=== PATIENT | male | born 1960 | race Caucasian/White ===

== ENCOUNTER → 2017-01-14 | Outpatient (CLI) | payer OTHER | LOC: BMCIMAGING 15:29 | PROVIDERS: ATTEND Internal Medicine Rheumatology | DX: M25.551 Pain in right hip (principal) ==

== ENCOUNTER → 2017-02-23 | Outpatient (CLI) | payer OTHER | LOC: FIMAGING 15:59 | PROVIDERS: ATTEND Orthopaedic Surgery | DX: M16.11 Unilateral primary osteoarthritis, right hip (principal); M25.851 Other specified joint disorders, right hip; M51.36 Other intervertebral disc degeneration, lumbar region; M76.891 Other specified enthesopathies of right lower limb, excluding foot ==

== ENCOUNTER → 2017-03-07 | Outpatient (CLI) | payer OTHER ==
[~2017-03-07] MED LIST: DEPO METHYLPREDNISOLONE 40 MG/ML SDV ONE; IOPAMIDOL (ISOVUE 370) 100 ML BTL IV ONE; LIDOCAINE 1% 30 ML SDV ONE; NA BICARBONATE 50 MEQ/50 ML VIAL ONE; ROPIVACAINE HCL 150 MG/30 ML INJ ONE
== END ==
LOC: FIMAGING 12:25
PROVIDERS: ATTEND Orthopaedic Surgery
DX: M25.551 Pain in right hip (principal)
CPT/HCPCS: J1030; J2795; Q9967

== ENCOUNTER 2017-04-19 18:57 | Observation (INO) | payer OTHER ==
[2017-04-19 20:00] LABS: % IMMATURE GRANULYOCYTES 0.5 % (0.0-1.1); ABSOLUTE IMMATURE GRANULOCYTES 0.03 10^3/uL (0.00-0.10); ADD DIFF? NO; ADD MORPH? YES; ADD SCAN? NO; ATYPICAL LYMPHOCYTE FLAG 10 (0-99); FRAGMENT RBC FLAG 0 (0-99); HEMATOCRIT 19.7 % (40.0-51.0); LEFT SHIFT FLG 0 (0-99); LIPEMIA HEMOLYSIS FLAG 90 (0-99); MEAN CELL HEMOGLOBIN 37.3 pg (27.9-34.1); MEAN CELL VOLUME 106.5 fL (81.5-99.8); MEAN PLATELET VOLUME 10.7 fL (8.7-11.7); PLATELET CLUMPS FLAG 0 (0-99); PLATELET COUNT 245 10^3/uL (150-400); RED BLOOD CELL COUNT 1.85 10^6/uL (4.40-6.38)
[2017-04-19 20:02] LABS: HEMOGLOBIN 6.9 g/dL (13.7-17.5); RED CELL DISTRIBUTION WIDTH 23.2 % (11.5-15.2)
--- NOTE | 2017-04-19 20:19 | EDPHY ---
HPI/HX/ROS/PE/MDM Narrative: CHIEF COMPLAINT: Low Hgb and Hct. HISTORY OF PRESENT ILLNESS: The patient is a 56-year-old male sent here by his PCP for abnormal low Hgb and Hct. The patient went to see his PCP for low energy , chest pain, and shortness of breath that has been ongoing for the past month and a half. Patient has a past history of diabetes. He also has chronic back pain for which he has you been using Tylenol and ibuprofen. According to the patient's , he has been taking large doses of ibuprofen. He denies any abdominal upset, gastritis, reflux symptoms, vomiting, or changes in his stool. He denies bloody stool, hematuria, or hematemesis. No fever, chills, headache , or lightheadedness. REVIEW OF SYSTEMS: Aside from elements discussed in the HPI, a comprehensive 10-point review of systems was reviewed and is negative. PAST MEDICAL HISTORY: Hypertension, Diabetes, Diverticulitis SOCIAL HISTORY: . VITAL SIGNS: Reviewed by me GENERAL: Obese, Pale appearing. HEENT: Atraumatic. Eyes: Pale conjunctive. Mouth: pale mucous membranes. No erythema or lesions. Neck: supple with no adenopathy. LUNGS: Clear to auscultation bilaterally, no wheezes, rhonchi or rales. CARDIAC: Regular rate and rhythm, no rubs, murmurs or gallops. ABDOMEN: Soft, obese abdomen, bowel sounds normal. RECTAL: Small amount of brown stool. BACK: No CVA tenderness. EXTREMITIES: No trauma. No edema. Range of motion is normal throughout. NEURO: Alert and oriented, grossly nonfocal. SKIN: Warm and dry, no rash. Pale appearing. PSYCHIATRIC: Normal mentation, no agitation. Portions of this note were transcribed by a vice president medical affairs. I personally performed a history, physical exam, medical decision making, and confirmed accuracy of information the transcribed note. ED Course: Patient presents with severe anemia. Lab work shows Hgb 6.9, Hct 19. Patent appears very pale. He is borderline tachy. Hemoccult sent. Patient's occult feces is negative for blood. Unclear cause of the patient's low H&H however his CMP is noted to be significantly elevated. The patient will be admitted to the hospitalist service. EKG is nonischemic. Troponin is negative. Course was discussed with Dr. Nunes. MDM: Differential diagnoses for the patient's symptom complex was considered including but not limited to acute blood loss anemia, malignancy, dietary insufficiencies, kidney disease, drug or alcohol use. - Data Points Laboratory Results: Laboratory Results 04/19/17 19:40 04/19/17 19:40 04/19/17 04/19/17 04/19/17 19:40 19:40 19:40 WBC 6.26 10^3/uL 10^3/uL (3.80-9.50) RBC 1.85 10^6/uL L 10^6/uL (4.40-6.38) Hgb 6.9 g/dL L g/dL (13.7-17.5) Hct 19.7 % L % (40.0-51.0) MCV 106.5 fL H fL (81.5-99.8) MCH 37.3 pg H pg (27.9-34.1) MCHC 35.0 g/dL g/dL (32.4-36.7) RDW 23.2 % H % (11.5-15.2) Plt Count 245 10^3/uL 10^3/uL (150-400) MPV 10.7 fL fL (8.7-11.7) Neut % (Auto) 48.3 % % (39.3-74.2) Lymph % (Auto) 40.3 % % (15.0-45.0) [place] % (Auto) 8.6 % % (4.5-13.0) Eos % (Auto) 2.1 % % (0.6-7.6) Baso % (Auto) 0.2 % L % (0.3-1.7) Nucleat RBC Rel Count 0.0 % % (0.0-0.2) Absolute Neuts (auto) 3.03 10^3/uL 10^3/uL (1.70-6.50) Absolute Lymphs (auto) 2.52 10^3/uL 10^3/uL (1.00-3.00) Absolute Monos (auto) 0.54 10^3/uL 10^3/uL (0.30-0.80) Absolute Eos (auto) 0.13 10^3/uL 10^3/uL (0.03-0.40) Absolute Basos (auto) 0.01 10^3/uL L 10^3/uL (0.02-0.10) Absolute Nucleated RBC 0.00 10^3/uL 10^3/uL (0-0.01) Immature Gran % 0.5 % % (0.0-1.1) Immature Gran # 0.03 10^3/uL 10^3/uL (0.00-0.10) Platelet Estimate ADEQUATE (ADEQ) Polychromasia 1+ H Microcytic Cells 1+ H Tear Drop Cells 1+ H Oval Macrocytes 2+ H Smear Review By Pending Sodium 137 mEq/L mEq/L (134-144) Potassium 4.2 mEq/L mEq/L (3.5-5.2) Chloride 102 mEq/L mEq/L (97-110) Carbon Dioxide 21 mEq/l L mEq/l (22-31) Anion Gap 14 mEq/L mEq/L (8-16) BUN 11 mg/dL mg/dL (7-23) Creatinine 1.0 mg/dL mg/dL (0.7-1.3) Estimated GFR > 60 Glucose 118 mg/dL H D mg/dL (70-100) Calcium 10.0 mg/dL mg/dL (8.5-10.4) Total Bilirubin Pending Conjugated Bilirubin Pending Unconjugated Bilirubin Pending AST Pending ALT Pending Alkaline Phosphatase Pending Troponin I Pending Total Protein Pending Albumin Pending Acetaminophen Pending Patient ABO/Rh O POSITIVE Antibody Screen NEGATIVE Crossmatch IS Only See Detail General Time Seen by Provider: 04/19/17 19:57 Initial Vital Signs: Initial Vital Signs Temperature (C) 36.8 C 04/19/17 19:02 Heart Rate 108 H 04/19/17 19:02 Respiratory Rate 16 04/19/17 19:02 Blood Pressure 147/74 H 04/19/17 19:02 O2 Sat (%) 94 04/19/17 19:02 O2 Delivery Mode Room Air Allergies/Adverse Reactions: codeine [Codeine] Allergy (Verified 02/14/14 08:28) Itching fenofibrate nanocrystallized [From Tricor] Allergy (Verified 02/14/14 10:20) fenofibrate,micronized [From Tricor] Allergy (Verified 02/14/14 10:20) morphine Allergy (Verified 02/14/14 10:20) oxycodone [Oxycodone] Allergy (Verified 02/14/14 10:20) oxycodone HCl [From OxyContin] Allergy (Verified 02/14/14 10:20) Penicillins Allergy (Verified 02/14/14 08:28) Rash tramadol Allergy (Verified 02/14/14 10:20) TAPES Allergy (Uncoded 02/01/13 12:43) Home Medications: Medication Instructions Recorded ALPRAZolam [Alprazolam] 0.5 mg PO HS PRN 04/19/17 Acetaminophen [Tylenol ES 500 mg 500 mg PO Q6 PRN 04/19/17 (*)] Atorvastatin Calcium [Lipitor 40 40 mg PO HS 04/19/17 mg (*)] Gemfibrozil [Lopid 600 MG (*)] 600 mg PO BIDAC 04/19/17 Ibuprofen [Motrin (*)] 200 mg PO QID PRN 04/19/17 Metformin HCl [Metformin 1000 mg] 1,000 mg PO BID 04/19/17 Methylphenidate HCl 20 mg PO DAILY 04/19/17 [Methylphenidate HCl ER] OLANZapine [ZyPREXA 2.5 mg (*)] 2.5 mg PO HS 04/19/17 Folic Acid [Folic Acid 1 MG (*)] 1 mg PO DAILY #30 tab 04/20/17 Departure - Departure Disposition: [facility] Clinical Impression: Anemia Qualifiers: Anemia type: unspecified type Qualified Code(s): D64.9 - Anemia, unspecified Condition: Fair Report Scribed for: Madelin Ly Report Scribed by: Lou Payne Date of Report: 04/19/17 Time of Report: 20:14
[2017-04-19 20:22] LABS: ANION GAP 14 mEq/L (8-16); CARBON DIOXIDE 21 mEq/l (22-31); CHLORIDE 102 mEq/L (97-110); GLOMERULAR FILTRATION RATE > 60; GLUCOSE 118 mg/dL (70-100); POTASSIUM 4.2 mEq/L (3.5-5.2); SODIUM 137 mEq/L (134-144)
--- NOTE | 2017-04-19 20:34 | CPEKG ---
Heart Rate: 89 RR Interval: 674 P-R Interval: 188 QRSD Interval: 92 QT Interval: 348 QTC Interval: 424 P [place]: 16 QRS [place]: -1 T Wave [place]: 42 EKG Severity - NORMAL ECG - EKG Impression: SINUS RHYTHM Electronically Signed By: Madelin Ly 19-Apr-2017 21:21:51
[2017-04-19] MEDS ORDERED: NS 1,000 ML IV ONE (20:36)
[2017-04-19 21:02] LABS: ALANINE AMINOTRANSFERASE 46 IU/L (21-72); ALBUMIN 4.6 g/dL (3.5-5.0); ALKALINE PHOSPHATASE 84 IU/L (38-126); ASPARTATE AMINOTRANSFERASE 44 IU/L (17-59); BILIRUBIN,TOTAL 0.6 mg/dL (0.1-1.4); BILIRUBIN-CONJUGATED 0.5 mg/dL (0.0-0.5); BILIRUBIN-UNCONJUGATED 0.1 mg/dL (0.0-1.1); TOTAL PROTEIN 7.1 g/dL (6.3-8.2)
[2017-04-19 21:03] LABS: MACROCYTES 2+; MICROCYTES 1+; PLATELET ESTIMATE ADEQUATE (ADEQ); POLYCHROMASIA 1+
[2017-04-19 21:13] LABS: TROPONIN I < 0.012 ng/mL (0-0.034)
[2017-04-19] MEDS ORDERED: ACETAMINOPHEN 500 MG TAB PO PRN (23:10)
[2017-04-19] MEDS ORDERED: ALPRAZolam 0.5 MG TAB PO PRN (23:10)
[2017-04-19] MEDS ORDERED: ONDANSETRON 4 MG/2 ML VIAL IVP PRN (23:11)
[2017-04-19] MEDS ORDERED: NS 1,000 ML IV SCH (23:15)
--- NOTE | 2017-04-20 02:48 | GHP ---
[f rep st] HISTORY AND PHYSICAL DATE OF ADMISSION: 04/19/2017 CHIEF COMPLAINT: Chest pain, shortness of breath. HISTORY: The patient is a 56-year-old male, sent to the emergency room by his primary care doctor taylor johnson he has been found to have a significant anemia. He presented to Primary Care complaining of low e nergy, chest pain and shortness of breath for the last 2 months. He gets very dyspneic with only mi nimal exertion, just a small flight of stairs or mowing the lawn completely winds him. He has had b lurry vision, and his legs are weak and wobbly. He has a chest pain across his anterior chest and r adiating to his back. He describes this as a heaviness. He has noticed it while mowing his lawn an d other light activities. It gets better after rest. With exertion, these symptoms get so bad, he almost passes out. He has recently lost 16 pounds intentionally. He has been following a vegetarian and protein diet o mic the last 3 months leading to this weight loss. He has a complex surgical GI history, so he has had extensive colonoscopies in the past. His last 1 was 5 years ago. Due to his previous surgical anastomosis which are atypical, colonoscopies are very difficult. He reports 1 unit of packed red b lood cells in the emergency room being administered. Now, he feels better. PAST MEDICAL HISTORY: 1. Hypertension. 2. Hyperlipidemia. 3. Diabetes type 2. 4. Diverticulitis, status post 5 major surgeries including extensive bowel resection. He was told in [place], he has very little bowel left in order for them to do the reattachment. MEDICATIONS: Please see computer record for full detailed list. ALLERGIES: To codeine, fenofibrate, morphine, oxycodone, penicillin, tramadol and tape. SOCIAL HISTORY: Quit smoking 30 years ago. Occasional alcohol. He lives with his . 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 REVIEW OF SYSTEMS: Complete review of systems obtained. Review of systems is negative regarding co nstitutional, HEENT, GI, pulmonary, vascular, , hematology, skin, muscular, endocrine, psych. For positives, see in HPI. FAMILY HISTORY: Reviewed and noncontributory to the main complaint. PHYSICAL EXAMINATION: GENERAL: Well-developed, well-nourished male, in no acute distress. VITAL S IGNS: Temperature is 37.1, pulse 108, blood pressure 143/85, saturating 93% on room air. EYES: No rmal conjunctivae. Pupils reactive to light. ENT: Normal ears, nose. Hearing intact. Normal lip s and teeth. Oropharynx moist. NECK: Trachea midline. No thyromegaly. CHEST: Normal respirator y effort. Lungs are clear to auscultation bilaterally. CARDIOVASCULAR: Regular rhythm. No murmur . No lower extremity edema. ABDOMEN: Soft, nontender. No hepatosplenomegaly. SKIN: Warm, dry, intact. No rash. MUSCULOSKELETAL: No cyanosis or clubbing. Strength 5/5, upper and lower extremi ties. NEURO: Cranial nerves intact. Normal sensation to light touch. PSYCH: Alert and oriented x3. Normal affect. Normal judgment and insight. Normal memory. LAB: White count 6.26, hematocrit 19.7, hemoglobin 6.9, MCV 106, platelets 245. Sodium 137, potass ium 4.2, chloride 102, bicarb 21, BUN 11, creatinine 1.0, glucose 118. LFTs are negative. Troponin s negative. Heme-negative from below. Tylenol level is negative. TSH is 5.2, LDL is only 9. EKG viewed by me, my personal interpretation is normal sinus rhythm. No ST or T-wave changes. MEDICAL RECORDS REVIEW: I reviewed his old medical records including outpatient laboratory studies which do show that this anemia has been developing over the last few weeks. They have never checked a B12. LDL is only 9. TSH 5.2. ASSESSMENT/PLAN: 1. Macrocytic anemia with an MCV of 106. He is heme-negative from below and up-to-date on colonosc opies, making colon cancer less likely. We will check a B12 and folic acid level. I wonder whether these extensive bowel resections he has had in the past have led to some type of malabsorption stat e. He is also following a strict diet to lose weight, which may be contributing. If initial evalua tion is unremarkable, could consider inpatient hematology consultation. The patient reports getting a blood transfusion in the emergency room, although I am unable to confirm this by chart review. W e will recheck CBC in the morning. 2. Chest pain. This is clearly worsened by his anemia, although has a great history for a stable a ngina. He may have some underlying coronary artery disease as he does have risk factors with anemia exacerbating the symptoms. I would consider stress testing when his anemia is improved. 3. Hyperlipidemia. His LDL is only 9. We will hold his statin drug. 4. Diabetes type 2. Continue metformin. CODE STATUS: Full. ADMISSION STATUS: Will admit to observation as repeat testing in the morning will help determine le ngth of stay needed. DVT PROPHYLAXIS: He is low risk. We will hold off on pharmacologic prophylaxis at this time. /[id number]/MODL
[2017-04-20 05:51] LABS: % IMMATURE GRANULYOCYTES 0.5 % (0.0-1.1); ABSOLUTE IMMATURE GRANULOCYTES 0.02 10^3/uL (0.00-0.10); ADD DIFF? NO; ADD MORPH? YES; ADD SCAN? NO; ATYPICAL LYMPHOCYTE FLAG 0 (0-99); FRAGMENT RBC FLAG 0 (0-99); HEMATOCRIT 22.5 % (40.0-51.0); HEMOGLOBIN 7.5 g/dL (13.7-17.5); LEFT SHIFT FLG 0 (0-99); LIPEMIA HEMOLYSIS FLAG 80 (0-99); MEAN CELL HEMOGLOBIN 34.7 pg (27.9-34.1); MEAN CELL HEMOGLOBIN CONCENTR. 33.3 g/dL (32.4-36.7); MEAN CELL VOLUME 104.2 fL (81.5-99.8); MEAN PLATELET VOLUME 11.4 fL (8.7-11.7); PLATELET CLUMPS FLAG 0 (0-99); PLATELET COUNT 231 10^3/uL (150-400); RED BLOOD CELL COUNT 2.16 10^6/uL (4.40-6.38)
[2017-04-20 06:03] LABS: RED CELL DISTRIBUTION WIDTH 23.5 % (11.5-15.2)
[2017-04-20 06:10] LABS: % SATURATION 81 % (20-55); TOTAL IRON BINDING CAPACITY 288 ug/dL (260-490)
[2017-04-20 06:29] LABS: MACROCYTES 2+; MICROCYTES 1+; PLATELET ESTIMATE ADEQUATE (ADEQ); POLYCHROMASIA 1+
[2017-04-20] MEDS ORDERED: GEMFIBROZIL 600 MG TAB PO SCH (07:30)
[2017-04-20] MEDS ORDERED: metFORMIN HCL 500 MG TAB PO SCH (08:00)
[2017-04-20] MEDS ORDERED: METHYLPHENIDATE HCL 20 MG PO SCH (09:00)
[2017-04-20] MEDS ORDERED: NON-FORMULARY NEW DRUG (Metformin Hcl [Metformin 1000 Mg] 1,000 MG) PO SCH (09:00)
[2017-04-20] MEDS ORDERED: METHYLPHENIDATE SR 20 MG TAB.SR PO SCH (09:00)
[2017-04-20] MEDS ORDERED: CYANO/VITAMIN B12 1000 MCG/ML VIAL IM ONE (10:17)
--- NOTE | 2017-04-20 10:33 | HOSPPROG ---
Hospitalist Progress Note Assessment/Plan: 56 yo M w symptomatic anemia anemia: not iron deficient no e/o blood loss has had recent colonoscopies no vomiting/hematemesis guaiac neg give add'l unit and IM b12 folate script home today > 30 minutes repeat blood count in 2 weeks and hematology referral then if not holding Subjective: transfused but still quite anemic. may have had some small bowel resection as part of colon surgeries Objective: Vital Signs Temp Pulse Resp BP Pulse Ox 36.3 C 74 24 H 124/74 H 95 04/20/17 07:53 04/20/17 07:53 04/20/17 07:53 04/20/17 07:53 04/20/17 07:53 Laboratory Results 04/20/17 04:55 04/19/17 04/20/17 04/21/17 05:59 05:59 05:59 Intake Total 2059 Balance 2059 - Physical Exam Constitutional: no apparent distress, appears nourished Eyes: PERRL, anicteric sclera Ears, Nose, Mouth, Throat: moist mucous membranes, hearing normal, ears appear normal Cardiovascular: regular rate and rhythym, no murmur, rub, or gallop, systolic murmur, No tachycardia Respiratory: no respiratory distress, no rales or rhonchi Gastrointestinal: normoactive bowel sounds, soft, non-tender abdomen Genitourinary: no bladder fullness, No tapia in urethra Skin: warm, normal color Musculoskeletal: full muscle strength, no muscle tenderness Neurologic: AAOx3 ICD10 Worksheet Patient Problems: Problems Problem Status Onset Anemia Acute
[2017-04-20 10:56] VITALS: BP 143/74; PULSE 94; RESP 20; TEMP 97.9; O2SAT 96
--- NOTE | 2017-04-20 16:13 | GDS ---
[f rep st] DISCHARGE SUMMARY DISCHARGE DIAGNOSES: 1. Symptomatic macrocytic anemia. 2. Extensive bowel surgery. 3. Diabetes. HOSPITAL COURSE: The patient presented with symptomatic anemia. Received a unit of packed cells in the emergency department. Remained anemic and received a second unit. He has no evidence of blood loss. He was guaiac negative. He does not have vomiting. His B12 level is low normal and his folate is high normal. He does not describe diet deficiencies. He thinks he may have had some of his small bowel removed. He describes his surgery where they had to take out part of the small bowel where it connects to the colon, which sounds an awful lot like the terminal ilium. Patient given IM B12 and an additional unit of packed cells and a prescription for folic acid, and i s discharged. Recommend followup with his primary care physician, Dr. Rachael Womack, in a couple weeks f or repeat blood counts. If he remains anemic, then I think it would be reasonable to have a visit w ith a computer technology instructor. /[id number]/MODL
[2017-04-20] MEDS ORDERED: OLANZapine 2.5 MG TAB PO SCH (21:00)
== END 2017-04-20 13:59 | disposition home or self-care (01) ==
LOC: INTOOBSV 20:36 → F2W 22:11
PROVIDERS: ADMIT Student in an Organized Health Care Education/Training Program; ATTEND Internal Medicine
PROC: 30233N1 Transfusion of Nonautologous Red Blood Cells into Peripheral Vein, Percutaneous Approach (ICD-10-PCS; principal; 2017-04-19)
DX: D52.0 Dietary folate deficiency anemia (principal); R07.9 Chest pain, unspecified; E78.5 Hyperlipidemia, unspecified; E11.9 Type 2 diabetes mellitus without complications; I10 Essential (primary) hypertension; M54.5 Low back pain; Z87.19 Personal history of other diseases of the digestive system; Z90.49 Acquired absence of other specified parts of digestive tract; Z88.6 Allergy status to analgesic agent; Z79.84 Long term (current) use of oral hypoglycemic drugs
CPT/HCPCS: 36430; 93005; 96360; 99285; G0378; P9016; 82607-90; G0480

== ENCOUNTER 2017-10-23 12:18 | Emergency (ER) | payer OTHER ==
[2017-10-23 12:30] VITALS: RESP 18
--- NOTE | 2017-10-23 12:53 | EDPHY ---
H & P Time Seen by Provider: 10/23/17 12:52 HPI/ROS: Chief complaint. Cough, congestion HPI. 56-year-old male presents emergency department with 2 day history of cough achiness and fever. No known exposures. No recent travel. He has slight tightness in his chest especially with cough. No abdominal pain vomiting or diarrhea. The tightness in his chest is not worse with exertion or breathing but with coughing. He also has slight sore throat and upper airway congestion. ROS Constitutional. Fever Eyes. no problems with vision ENT. no sore throat, no nasal drainage Cardiovascular. no chest pain Respiratory. Cough Abdominal. no abdominal pain, no nausea/vomiting, no diarrhea . no problems urinating MS. Achy Skin. no rash Lymph. no swollen glands Neuro. no headache, no dizziness, no difficulty walking or with speech Past Medical/Surgical History: Lichen planus oral, diverticulitis, hypertension, diabetes, dyslipidemia, bowel resection Social History: , nonsmoker, no alcohol Smoking Status: Former smoker Physical Exam: General Appearance: Alert well-developed male moderate distress vital signs significant for heart rate 117 Eyes: Pupils equal and round no pallor or injection. ENT, tympanic membranes normal. Pharynx slightly injected without exudate. Mucous membranes are slightly dry Respiratory: No retractions mild inspiratory expiratory rhonchi Cardiovascular: Regular rate and rhythm with tachycardia Gastrointestinal: Abdomen is soft and nontender, no masses, bowel sounds normal. Neurological: Awake and alert, sensory and motor exams grossly normal. Skin: Warm and dry, no rashes. Musculoskeletal: Neck is supple nontender. Extremities symmetrical, full range of motion. Psychiatric: Patient is oriented X 3, there is no agitation. Constitutional: Initial Vital Signs Temperature (C) 36.9 C 10/23/17 12:28 Heart Rate 117 H 10/23/17 12:28 Respiratory Rate 18 10/23/17 12:28 Blood Pressure 167/86 H 10/23/17 12:28 O2 Sat (%) 97 10/23/17 12:28 O2 Delivery Mode Room Air Allergies/Adverse Reactions: codeine [Codeine] Allergy (Verified 10/23/17 12:31) Itching fenofibrate nanocrystallized [From Tricor] Allergy (Verified 10/23/17 12:31) fenofibrate,micronized [From Tricor] Allergy (Verified 10/23/17 12:31) morphine Allergy (Verified 10/23/17 12:31) oxycodone [Oxycodone] Allergy (Verified 10/23/17 12:31) oxycodone HCl [From OxyContin] Allergy (Verified 10/23/17 12:31) Penicillins Allergy (Verified 10/23/17 12:31) Rash tramadol Allergy (Verified 10/23/17 12:31) TAPES Allergy (Uncoded 10/23/17 12:31) Home Medications: Medication Instructions Recorded ALPRAZolam [Alprazolam] 0.5 mg PO HS PRN 04/19/17 Acetaminophen [Tylenol ES 500 mg 500 mg PO Q6 PRN 04/19/17 (*)] Atorvastatin Calcium [Lipitor 40 40 mg PO HS 04/19/17 mg (*)] Gemfibrozil [Lopid 600 MG (*)] 600 mg PO BIDAC 04/19/17 Ibuprofen [Motrin (*)] 200 mg PO QID PRN 04/19/17 Metformin HCl [Metformin 1000 mg] 1,000 mg PO BID 04/19/17 Methylphenidate HCl 20 mg PO DAILY 04/19/17 [Methylphenidate HCl ER] OLANZapine [ZyPREXA 2.5 mg (*)] 2.5 mg PO HS 04/19/17 Folic Acid [Folic Acid 1 MG (*)] 1 mg PO DAILY #30 tab 04/20/17 Oseltamivir Phosphate [Tamiflu 75 75 mg PO BID #10 cap 10/23/17 mg (*)] Medical Decision Making - Diagnostics Imaging Results: Imaging Impressions Chest X-Ray 10/23/17 13:03 Impression: Findings most consistent with airways disease are noted. Chest x-ray interpreted by me shows no pneumonia Procedures: Flu swab is positive for flu A. Tamiflu in the emergency department IV normal saline with 1 L given. ED Course/Re-evaluation: Re-evaluation at 2:00 p.m.. Patient is feeling much better. He had begun to spike a fever so he has been treated with Tylenol 1 g orally. His tachycardia is resolving. He is being given 1 more L of saline. He feels much improved. He and I discussed imaging and lab results. We discussed treatment plan including criteria for return importance of follow-up and further evaluation. He expresses understanding and agreement Differential Diagnosis: I considered pneumonia as well as influenza. - Data Points Laboratory Results: Laboratory Results 10/23/17 13:30 10/23/17 13:30 10/23/17 10/23/17 10/23/17 13:30 13:30 12:30 WBC 7.51 10^3/uL 10^3/uL (3.80-9.50) RBC 4.37 10^6/uL L 10^6/uL (4.40-6.38) Hgb 13.9 g/dL g/dL (13.7-17.5) Hct 41.6 % % (40.0-51.0) MCV 95.2 fL fL (81.5-99.8) MCH 31.8 pg pg (27.9-34.1) MCHC 33.4 g/dL g/dL (32.4-36.7) RDW 12.9 % % (11.5-15.2) Plt Count 180 10^3/uL 10^3/uL (150-400) MPV 9.9 fL fL (8.7-11.7) Neut % (Auto) 81.2 % H % (39.3-74.2) Lymph % (Auto) 5.7 % L % (15.0-45.0) [place] % (Auto) 10.3 % % (4.5-13.0) Eos % (Auto) 1.7 % % (0.6-7.6) Baso % (Auto) 0.4 % % (0.3-1.7) Nucleat RBC Rel Count 0.0 % % (0.0-0.2) Absolute Neuts (auto) 6.10 10^3/uL 10^3/uL (1.70-6.50) Absolute Lymphs (auto) 0.43 10^3/uL L 10^3/uL (1.00-3.00) Absolute Monos (auto) 0.77 10^3/uL 10^3/uL (0.30-0.80) Absolute Eos (auto) 0.13 10^3/uL 10^3/uL (0.03-0.40) Absolute Basos (auto) 0.03 10^3/uL 10^3/uL (0.02-0.10) Absolute Nucleated RBC 0.00 10^3/uL 10^3/uL (0-0.01) Immature Gran % 0.7 % % (0.0-1.1) Immature Gran # 0.05 10^3/uL 10^3/uL (0.00-0.10) Sodium 139 mEq/L mEq/L (134-144) Potassium 4.6 mEq/L mEq/L (3.5-5.2) Chloride 99 mEq/L mEq/L (97-110) Carbon Dioxide 24 mEq/l mEq/l (22-31) Anion Gap 16 mEq/L mEq/L (8-16) BUN 13 mg/dL mg/dL (7-23) Creatinine 1.0 mg/dL mg/dL (0.7-1.3) Estimated GFR > 60 Glucose 93 mg/dL mg/dL (70-100) Calcium 9.5 mg/dL mg/dL (8.5-10.4) Troponin I < 0.012 ng/mL ng/mL (0.000-0.034) Influenza A,B Rapid POSITIVE FOR FLU A H (NEGATIVE) Medications Given: Discontinued Medications Acetaminophen (Tylenol) 1,000 mg PO EDNOW ONE Stop: 10/23/17 13:39 Last Admin: 10/23/17 13:39 Dose: 1,000 mg Sodium Chloride (Ns) 1,000 mls @ 0 mls/hr IV ONCE ONE; Wide Open PRN Reason: Protocol Stop: 10/23/17 13:04 Last Admin: 10/23/17 13:25 Dose: 1,000 mls Sodium Chloride (Ns) 1,000 mls @ 0 mls/hr IV EDNOW ONE; Wide Open PRN Reason: Protocol Stop: 10/23/17 13:08 Last Admin: 10/23/17 14:07 Dose: 1,000 mls Oseltamivir Phosphate (Tamiflu) 75 mg PO EDNOW ONE Stop: 10/23/17 13:04 Last Admin: 10/23/17 13:36 Dose: 75 mg Departure - Departure Disposition: Home, Routine, Self-Care Clinical Impression: Influenza A Condition: Good Instructions: Influenza (ED) Additional Instructions: Drink plenty of fluids and stay hydrated. Tylenol and ibuprofen as needed for fever. Tamiflu twice daily. Avoid spread of illness by good hand washing and covering mouth with cough. Return for worsening breathing, chest discomfort. Recheck in 2 days if not improving Referrals: Ronal Goodman MD [[facility] [place] - 2-3 days, if not improved Stand Alone Forms: Work Excuse Prescriptions: Oseltamivir Phosphate [Tamiflu 75 mg (*)] 75 mg PO BID #10 cap
[2017-10-23] MEDS ORDERED: OSELTAMIVIR PHOSPHATE 75 MG CAP PO ONE (13:03)
[2017-10-23] MEDS ORDERED: NS 1,000 ML IV ONE ×2 (13:03→13:07)
[2017-10-23] MEDS ORDERED: ACETAMINOPHEN 500 MG TAB ONE (13:35)
[2017-10-23 13:36] LABS: PLATELET COUNT 180 10^3/uL (150-400)
[2017-10-23] MEDS ORDERED: ACETAMINOPHEN 500 MG TAB PO ONE (13:38)
[2017-10-23 14:12] VITALS: TEMP 100.4
[2017-10-23 14:42] VITALS: BP 135/76; PULSE 116; O2SAT 95
== END 2017-10-23 14:51 | disposition home or self-care (01) ==
LOC: CED 12:18
DX: J10.1 Influenza due to other identified influenza virus with other respiratory manifestations (principal); I10 Essential (primary) hypertension; E11.9 Type 2 diabetes mellitus without complications; E86.9 Volume depletion, unspecified; Z79.84 Long term (current) use of oral hypoglycemic drugs; Z87.891 Personal history of nicotine dependence
CPT/HCPCS: 71020-PO; 80048-PO; 84484-PO; 85025-PO; 87400-PO

== ENCOUNTER → 2018-03-28 | Outpatient (CLI) | payer OTHER | LOC: CIMAGING 16:47 → EDSTATUS 16:48 | PROVIDERS: ATTEND Family Medicine | DX: M50.322 Other cervical disc degeneration at C5-C6 level (principal); M25.512 Pain in left shoulder; M79.642 Pain in left hand | CPT/HCPCS: 72040-PO ==

== ENCOUNTER → 2019-02-28 | Outpatient (CLI) | payer OTHER | LOC: CIMAGING 16:18 | PROVIDERS: ATTEND Family Medicine | DX: M50.322 Other cervical disc degeneration at C5-C6 level (principal); R20.2 Paresthesia of skin; M25.512 Pain in left shoulder; M75.42 Impingement syndrome of left shoulder | CPT/HCPCS: 72050-PO ==

== ENCOUNTER → 2019-04-11 | Outpatient (CLI) | payer OTHER | LOC: EMCIMAGING 14:24 ==